=== PATIENT | male | born 1945 | race Caucasian/White ===

== ENCOUNTER 2017-12-14 09:19 | Emergency (ER) | payer MEDICARE, OTHER ==
[~2017-12-14] VITALS: Ht 177.8 cm; Wt 112.0 kg
[~2017-12-14 09:19] MED LIST: ALLOPURINOL300 MG PO; AMLODIPINE BESYL5 MG PO; ATENOLOL100 MG PO; ATENOLOL50 MG PO; COUMADIN5 MG PO; DIABETA2.5 MG PO; DICLOFENAC SODI50 MG PO; DIGOXIN125 MCG PO; FAMOTIDINE40 MG PO; FENOFIBRATE160 MG PO; FLUOXETINE HCL20 MG PO; FUROSEMIDE20 MG PO; FUROSEMIDE40 MG PO; GLIPIZIDE ER5 MG PO; GLUCOTROL XL2.5 MG PO; LISINOPRIL10 MG PO; LOSARTAN POTASS50 MG PO; METAMUCIL POWD283 GM PO; METFORMIN HCL500 M1 PO; METFORMIN HCL500 MG PO; METOPROLOL SUC100 MG PO; NEXIUM40 MG PO; NITROSTAT0.4 MG SL; NORCO 5-325 TA1 EACH PO; NORCO 7.5-3251 EACH PO; OXYCODONE HCL5 MG PO; ROSUVASTATIN CA20 MG PO; SIMVASTATIN20 MG PO; SIMVASTATIN40 MG PO; WARFARIN SODIU2.5 MG PO; ZITHROMAX250 MG PO
--- NOTE | 2017-12-15 08:02 | EKG ---
[facility] [address] [facility] [place] [address] Signed Atrial fibrillation with rapid ventricular response Low voltage QRS ST \T\ T wave abnormality, consider inferolateral ischemia Abnormal ECG When compared with ECG of 30-SEP-2016 21:57, ST now depressed in Anterolateral leads T wave inversion now evident in Inferior leads T wave inversion now evident in Lateral leads Confirmed by MELINDA MABRY MD ([id number]) on 12/15/2017 8:02:27 AM Electronically Signed By: MELINDA MABRY MD 12/15/17 0802 PATIENT NAME: TRUNG HARRIS Electrocardiogram DATE OF : 47 PHYSICIAN: MELINDA MABRY MD REPORT #: [id number] REPORT IS CONFIDENTIAL AND NOT TO BE RELEASED WITHOUT AUTHORIZATION
--- NOTE | 2017-12-15 08:02 | EKG ---
[facility] [address] [facility] [place] [address] Signed Atrial fibrillation with rapid ventricular response Low voltage QRS Nonspecific T wave abnormality Abnormal ECG When compared with ECG of 14-DEC-2017 09:25, (Unconfirmed) ST no longer depressed in Anterolateral leads Confirmed by MELINDA MABRY MD ([id number]) on 12/15/2017 8:02:48 AM Electronically Signed By: MELINDA MABRY MD 12/15/17 0802 PATIENT NAME: TRUNG HARRIS Electrocardiogram DATE OF : 47 PHYSICIAN: MELINDA MABRY MD REPORT #: [id number] REPORT IS CONFIDENTIAL AND NOT TO BE RELEASED WITHOUT AUTHORIZATION
== END 2017-12-14 13:51 | disposition short-term general hospital (02) ==
LOC: ED 09:19
DX: I48.91 Unspecified atrial fibrillation (principal); E11.9 Type 2 diabetes mellitus without complications; I10 Essential (primary) hypertension; Z87.891 Personal history of nicotine dependence; Z88.0 Allergy status to penicillin; Z79.01 Long term (current) use of anticoagulants; Z79.899 Other long term (current) drug therapy; Z79.84 Long term (current) use of oral hypoglycemic drugs
CPT/HCPCS: 36415; 71045; 80053; 83880; 84484; 85025; 85610; 93005; 93010; 96365; 96375; 99285; J0282; J2270; J2405